=== PATIENT | female | born 1965 | race African-American/Black ===

== ENCOUNTER 2017-04-23 10:30 | Emergency (ER) | payer MEDICAID ==
[~2017-04-23] VITALS: Ht 162.6 cm; Wt 59.0 kg
--- NOTE | 2017-04-23 13:33 | Diagnostic Imaging Report ---
Indication: Abdominal pain Technique: Spiral acquisitions obtained through the abdomen and pelvis. No oral contrast utilized, per emergency room physician request No IV contrast utilized, per emergency room physician request.. Multiplanar reconstructions were generated. Total dose length product 558.81 mGycm. CTDIvol(s) 12.33 mGy. Dose reduction achieved using automated exposure control Comparison: 01/11/2017 Findings: There is an umbilical hernia. Previously, this contained only fat. It now contains a loop of small bowel. There is some infiltration of the surrounding fat. However, there is no small bowel dilatation. The appendix is normal. There is colonic diverticulosis. No evidence of diverticulitis. No free or loculated intraperitoneal air or fluid. Distal esophagus, stomach, duodenum are unremarkable. The uterus is markedly enlarged, even more so than on the prior study. There is an 8 x 8 x 12 cm mass which appears adjacent to the top of the uterine fundus, not evident previously. This occupies the midline of the lower abdomen. The previously demonstrated left adnexal cystic mass is no longer evident Lack of IV contrast limits assessment of the solid organs. The liver is unremarkable. The gallbladder is nondistended. The pancreas, spleen, adrenals, right kidney are unremarkable. Previously reported pancreatic cystic abnormality is not clearly evident previously. Left kidney has been resected in the interim. No retroperitoneal or mesenteric mass or adenopathy. The bladder is markedly compressed by the main part of the uterus The included lung bases are clear. The bones are unremarkable Impression: Umbilical hernia containing a loop of small bowel. Although there is no small bowel dilatation to suggest obstruction, infiltration of the fat within the hernia sac raises possibility of strangulation 8 x 8 x 12 cm mid lower abdominal/upper pelvic mass with coarse calcifications. The pattern of calcifications is highly suggestive of a degenerated uterine fibroid, and it is contiguous with the top of the uterine fundus. The uterus itself is quite enlarged, more so than on the prior study, which demonstrated uterine calcifications suggesting fibroids. This there could represent a very pedunculated subserosal uterine fibroid. However, given the uncertainty of the connection to the uterus, the possibility of a nonuterine mass such as a mucinous neoplasm of uncertain origin should also be considered, particularly given history of prior left nephrectomy. Gynecological evaluation is recommended. Compression of the bladder by the enlarged uterus Diverticulosis. No evidence of diverticulitis Interim nephrectomy on the left Previously demonstrated pancreatic cystic abnormality no longer visualized Previously demonstrated left adnexal cystic mass no longer visualized Findings discussed by phone with Dr. Rivera in the emergency room at the time of interpretation The CT scanner at [facility] is accredited by the [employer] and the scans are performed using protocols designed to limit radiation exposure to as low as reasonably achievable to attain images of sufficient resolution adequate for diagnostic evaluation.
[2017-04-23 13:45] VITALS: BP 131/85
--- NOTE | 2017-04-25 14:33 | Emergency Room Report ---
History of Present Illness General Chief Complaint: General Complaint Source: Patient Present Illness HPI Patient reports history of umbilical hernia presents asking for directions of how to followup Denies any acute pain She does feel some hardness in the lower abdomen which is somewhat new Denies any vomiting or diarrhea patient is passing gas and having appropriate bowel movements denies any chest pain or shortness of breath Denies any dysuria frequency patient reports that she has had appropriate medical insurance for a long time however now with the lack of any Medicare she is requesting appropriate followup, Allergies: Coded Allergies: No Known Allergies (Verified Allergy, Unknown, 11/15/06) Patient History Past Medical History: see triage record Pertinent Family History: none Last Menstrual Period: 02/2017 Reviewed Nursing Documentation: PMH: Agreed, PSxH: Agreed Nursing Documentation-PMH Hx Hypertension: Yes Hx Cancer: Yes - kidney ca. Review of Systems All Other Systems: negative except mentioned in HPI Physical Exam Vital Signs Date Time Temp Pulse Resp B/P (MAP) Pulse Ox O2 Delivery O2 Flow Rate FiO2 04/23/17 10:44 97.9 93 18 131/85 96 Room Air Sp02 EP Interpretation: reviewed, normal General Appearance: well appearing, no apparent distress Head: normocephalic, atraumatic Eyes: bilateral eye PERRL, bilateral eye EOMI ENT: hearing grossly normal, normal pharynx, TMs + canals normal, uvula midline Neck: full range of motion, supple, no meningismus, no bony tend Respiratory: lungs clear, normal breath sounds, no rhonchi, no respiratory distress, no retraction, no accessory muscle use Cardiovascular #1: normal peripheral pulses, regular rate, rhythm, no edema, no gallop, no JVD, no murmur Gastrointestinal: normal bowel sounds, non tender, soft, non-distended, no guarding, no pulsatile mass, no rebound, other - Patient has a local hernia which is soft and easily reducible just below that region there is a palpable fullness etiology is unclear however nontender not fluctuant, Genitourinary: no CVA tenderness Musculoskeletal: normal inspection Neurologic: oriented x3, responsive, library services dean III-XII nml as tested, motor strength/ tone normal, sensory intact Psychiatric: mood/affect normal Skin: normal color, no rash, warm/dry, palpation normal Lymphatic: normal inspection, no adenopathy Medical Decision Making Diagnostic Impression: Primary Impression: umbilical hernia Additional Impression: Abdominal mass ER Course Given the patient's history and presentation given the lack of any previous workup CT image was obtained for further evaluation of the palpable mass Refer to the report for full specifics The umbilical hernia dictation clinically correlated is extremely soft does not appear to be strangulate it clinically The mass sounds to be possibly uterine fibroid which is calcified However patient is discussed regarding possible neoplasm and the need for close gynecological and primary care physician followup patient provided with initial clinics however will require further followup as well CT/MRI/US Diagnostic Results CT/MRI/US Diagnostic Results : Impression CT abdomen pelvis:Impression: Umbilical hernia containing a loop of small bowel. Although there is no small bowel dilatation to suggest obstruction, infiltration of the fat within the hernia sac raises possibility of strangulation 8 x 8 x 12 cm mid lower abdominal/upper pelvic mass with coarse calcifications. The pattern of calcifications is highly suggestive of a degenerated uterine fibroid , and it is contiguous with the top of the uterine fundus. The uterus itself is quite enlarged, more so than on the prior study, which demonstrated uterine calcifications suggesting fibroids. This there could represent a very pedunculated subserosal uterine fibroid. However, given the uncertainty of the connection to the uterus , the possibility of a nonuterine mass such as a mucinous neoplasm of uncertain origin should also be considered, particularly given history of prior left nephrectomy. Gynecological evaluation is recommended. Compression of the bladder by the enlarged uterus Diverticulosis. No evidence of diverticulitis Interim nephrectomy on the left Previously demonstrated pancreatic cystic abnormality no longer visualized Previously demonstrated left adnexal cystic mass no longer visualized Findings discussed by phone with Dr. Kennedy in the emergency room at the time of interpretation Last Vital Signs Date Time Temp Pulse Resp B/P (MAP) Pulse Ox O2 Delivery O2 Flow Rate FiO2 04/23/17 13:45 97.9 18 131/85 96 Room Air 04/23/17 13:45 89 Status: improved Disposition: HOME, SELF-CARE Condition: Stable Referrals: NOT CHOSEN IPA/,REFERRING (PCP) Patient Instructions: Inguinal Hernia, Adult, [id number] Additional Instructions: The CAT scan imaging of the abdomen does show mass in the abdomen. This looked to be likely a uterine fibroid however other cancer cannot be fully ruled out. This requires close outpatient followup He had been provided with a list of clinics And require followup in the next 7 days CASEY KENNEDY D.O. Apr 25, 2017 14:33
== END 2017-04-23 13:53 | disposition home or self-care (01) ==
LOC: EMR 11:51
DX: K42.9 Umbilical hernia without obstruction or gangrene (principal); R19.00 Intra-abdominal and pelvic swelling, mass and lump, unspecified site; I10 Essential (primary) hypertension; Z85.528 Personal history of other malignant neoplasm of kidney; Z90.5 Acquired absence of kidney
CPT/HCPCS: 74176; 99284